=== PATIENT | female | born 1985 | race Hispanic/Latino ===

== ENCOUNTER 2018-10-21 11:16 | Inpatient (IN) | payer BC ==
[2018-10-21] MEDS ORDERED: Magnesium Sulfate 2 gm/50 ml 2 GM/50 ML BAG IVPB ONE (11:30)
[2018-10-21] MEDS: Lactated Ringer's 1,000 ML IV SCH ×2 (11:30→23:06)
[2018-10-21] MEDS ORDERED: Magnesium Sulfate 4 gm/100 ml 4 GM/100 ML BAG IV ONE (11:41)
[2018-10-21] MEDS ORDERED: Magnesium Sul 40GM/1L SW 40 GM/1,000 ML ML IV ONE (11:41)
[2018-10-21] MEDS ORDERED: Labetalol 5mg/ml (4ml) IVP STA ×2 (12:05→12:07)
[2018-10-21 13:12] LABS: BASO % 0.3 % (0.0-2.0); EOS % 0.2 % (0.0-4.0); HEMOGLOBIN 12.9 g/dL (12.0-16.0); LYMPH % 23.6 % (20.0-40.0); MEAN CELL VOLUME 95.1 fl (81.0-99.0); MEAN CORPUSCULAR HEMOGLOBIN 31.7 pg (27.0-31.0); MEAN CORPUSCULAR HGB CONC 33.4 g/dL (33.0-37.0); MEAN PLATELET VOLUME 11.2 fl (7.2-11.7); MONO # 0.5 K/uL (0.0-0.8); MONO % 5.9 % (0.0-10.0); NRBC % 0.2 % (0.0-0.0); RBC 4.08 Mil/uL (3.80-5.20); RED CELL DISTRIBUTION WIDTH 13.4 % (11.5-14.5); WHITE BLOOD COUNT 8.6 K/uL (4.8-10.8)
[2018-10-21] MEDS ORDERED: Labetalol 5 mg/ml Inj 20ML IVP STA (13:20)
[2018-10-21 14:28] LABS: ALB/GLOB RATIO 0.9 (1.0-2.1); ALBUMIN 2.8 g/dL (3.5-5.0); ALT/SGPT 24 U/L (9-52); AST/SGOT 30 U/L (14-36); BLOOD UREA NITROGEN 17 mg/dl (7-17); GFR NON-AFRICAN AMERICAN > 60
[2018-10-21] MEDS ORDERED: OXYTOCIN/0.9 % NS 20 UNIT/1,000 ML BAG IV ONE (17:26)
[2018-10-21] MEDS ORDERED: Oxytocin 30 UNIT 30 UNITS/500 ML BAG IV ONE (17:28)
[2018-10-21] MEDS ORDERED: ceFAZolin 2 GM in Sodium Chloride 0.9% 100 ML IVPB ONE (17:28)
[2018-10-21] MEDS ORDERED: Lactated Ringer's 1,000 ML IV ONE (17:45)
[2018-10-21] MEDS ORDERED: Morphine 1 mg/ml preservative-free Inj(Duramorph) ONE (17:54)
[2018-10-21] MEDS ORDERED: Naloxone 0.4 mg/ml Inj (Adult) IVP PRN (17:55)
[2018-10-21] MEDS ORDERED: DiphenhydrAMINE 50 mg/ml Inj IVP PRN (17:55)
[2018-10-21] MEDS ORDERED: OXYTOCIN/0.9 % NS 20 UNIT/1,000 ML BAG IV SCH (18:00)
[2018-10-21] MEDS ORDERED: ePHEDrine 50 mg/ml Inj ONE (18:14)
[2018-10-21] MEDS ORDERED: Oxycodone/Acetaminophen 5/325 mg Tab PO PRN ×2 (19:22)
--- NOTE | 2018-10-21 19:32 | OBPN ---
Datetime: 10/21/2018 12:12 FHR - Baseline A Provider: 150 Gestation - Est Wks by US: 36.6 Presentation-Admit: Vertex IP Progress Note Comment: Patient presented to labor and delivery with elevated blood pressures mary jane ent was given labetalol IV and despite aggressive management of her hypertension and her pressures re main elevated. Internal medicine consultation was obtained recommendation for delivery was made . Plan of care was discussed with patient and partner we discussed risks benefits alternatives to jelani neel after thorough discussion patient and partner agreed to plan of care. Vital Signs Provider: Reviewed Vital Signs Provider Details: Several severe range BPs FHR Category Provider Fetus A: Category I NICHD Variability Prov Fetus A: Moderate 6-25bpm NICHD Decel Fetus A IP Provider: None
--- NOTE | 2018-10-21 19:32 | OBDS ---
DELIVERY PERSONNEL Delivery Doctor: Maurizio Burger MD Scrub Nurse: Joann Estrada OBT Grain Elevator Agent: Jennifer Hunter RN Anesthesiologist: Yessica Mercedes MD Resident: Ralph Gu MATERNAL INFORMATION Delivery Anesthesia: Spinal Medications in Delivery: ancef 2g, pitocin 30 units/500ml, pitocin 20units/1000ml Estimated Blood Loss (ml): 800 Placenta Cultured: Yes Maternal Complications: Other Other Maternal Complications: severe hypertension Provider Comments: See operative report LABOR SUMMARY EDC: 11/14/2018 00:00 No. Babies in Womb: 1 Attempted: No Labor Anesthesia: Intrathecal LABOR INFORMATION Reason for Induction: Chronic Hypertension Oxytocin: N/A Group B Beta Strep: Done, Result Unknown Antibiotics # of Doses: 0 Antibiotics Time of Last Dose: n/a Steroids Given: None Reason Steroids Not Administered: Not Applicable MEMBRANES Membranes Rupture Method: Artificial Rupture of Membranes: 10/21/2018 18:33 Length of Rupture (hrs): 0.00 Amniotic Fluid Color: Light Meconium Amniotic Fluid Amount: Moderate Amniotic Fluid Odor: None STAGES OF LABOR Stage 3 hrs: 0 Stage 3 min: 1 CSECTION DELIVERY Primary Indication: Other Other Primary Indication: Sever Hypertension CSection Urgency: Elective CSection Incidence: Primary Labor: No Labor Elective: Elective CSection Incision: Lower Uterine Transverse BABY A INFORMATION Delivery Date/Time: 10/21/2018 18:33 Method of Delivery: Born in Route : No : N/A Forceps: N/A Vacuum Extraction: N/A Shoulder Dystocia : No SHOULDER DYSTOCIA BABY A Infant Delivery Date/Time: 10/21/2018 18:33 PRESENTATION/POSITION BABY A Presentation: Cephalic Cephalic Presentation: Vertex Breech Presentation: N/A PLACENTA INFORMATION BABY A Placenta Delivery Time : 10/21/2018 18:34 Placenta Method of Delivery: Spontaneous Placenta Status: Delivered SCORES BABY A Heart Rate 1 min: >100 bpm Resp Effort 1 min: Good Cry Reflex Irritability 1 min: Cough or Sneeze or Pulls Away Muscle Tone 1 min: Active Motion Color 1 min: Body [place], Extremities Blue Resuscitation Effort 1 min: N/A SCORE 1 MIN: 9 Heart Rate 5 min: >100 bpm Resp Effort 5 min: Good Cry Reflex Irritability 5 min: Cough or Sneeze or Pulls Away Muscle Tone 5 min: Active Motion Color 5 min: Body [place], Extremities Blue Resuscitation Effort 5 min: N/A SCORE 5 MIN: 9 INFORMATION BABY A Gestational Age at Delivery: 36.3 Gestational Status: Term Infant Outcome : Liveborn Condition : Stable Sex: Female IDENTIFICATION/MEDS BABY A ID Band Number: [id number] ID Band Location: Left Leg; Left Arm WEIGHT/LENGTH BABY A Infant Birthweight (gms): 2870 Weight (lb): 6 Infant Weight (oz): 5 CORD INFORMATION BABY A No. Cord Vessels: 3 Nuchal Cord : N/A Cord Blood Taken: Yes Suction: Mouth
[2018-10-21] MEDS: Simethicone 80 mg Chewtab PO SCH (22:00)
[2018-10-22] MEDS: Simethicone 80 mg Chewtab PO SCH ×4 (04:08→22:42)
[2018-10-22 06:21] LABS: MEAN CELL VOLUME 94.5 fl (81.0-99.0); MEAN CORPUSCULAR HEMOGLOBIN 31.4 pg (27.0-31.0); MEAN CORPUSCULAR HGB CONC 33.2 g/dL (33.0-37.0); RBC 3.52 Mil/uL (3.80-5.20); RED CELL DISTRIBUTION WIDTH 13.6 % (11.5-14.5); WHITE BLOOD COUNT 14.3 K/uL (4.8-10.8)
[2018-10-22] MEDS ORDERED: Multivitamin With Minerals Tab PO SCH ×2 (09:00)
[2018-10-22] MEDS ORDERED: Lactated Ringer's 1,000 ML IV SCH ×2 (09:30→13:25)
[2018-10-22] MEDS ORDERED: Magnesium Sul 40GM/1L SW 40 GM/1,000 ML ML IV ONE (09:30)
[2018-10-22 10:17] LABS: ALB/GLOB RATIO 0.9 (1.0-2.1); ALBUMIN 2.6 g/dL (3.5-5.0); ALT/SGPT 22 U/L (9-52); AST/SGOT 41 U/L (14-36); BLOOD UREA NITROGEN 16 mg/dl (7-17); GFR NON-AFRICAN AMERICAN > 60
--- NOTE | 2018-10-22 10:23 | OBPPN ---
Datetime: 10/22/2018 10:16 PP Pain Prov: Within normal limits PP Nausea Prov: Denies PP Flatus Prov: Yes PP Breasts Prov: Normal PP Heart Prov: Normal PP Lungs Prov: Normal PP Abdomen/Uterus Prov: Normal PP Lochia Prov: Normal PP Vulva/Perineum Prov: Normal PP CVA Tenderness Prov: Normal PP Extremities Prov: Normal PP Comments Phys Exam Prov: Fundus firm under umbilicus Incision clean/dry/intact PP Progress Note Prov: Patient evaluated, having some dizziness, resolved after eating. No CP, no SO B, noN/V, tolerating PO diet, ambulating minimal, Crain removed this morning with >1000mL clear urine , mild lochia, abdominal pain tolerable witih meds chest: Clear to auscultation B/L Extremities: B/L lower reflexes +1 A/P 1. patient stable this AM. BP ranges 130s-150s/80s-100s. If consistantly over 150/100, will consid er starting PO Labetalol. Pt otherwise denies new signs/symptoms of Pre-eclampsia. Mg level=6.3, Mg d ropped to 1gm/hr. Will continue strict I's/O's - if pt unable to void will re-insert crain. CBC/CMP pending 2. continue percocet/motrin prn pain 3. Encourage ambulation/ 4. MgSO4 to stop this evening Vital Signs Provider PP: Reviewed; Within Normal Limits
--- NOTE | 2018-10-22 16:26 | OBPPN ---
Datetime: 10/22/2018 16:22 PP Pain Prov: Within normal limits PP Nausea Prov: Denies PP Flatus Prov: Yes PP Breasts Prov: Normal PP Heart Prov: Normal PP Lungs Prov: Normal PP Abdomen/Uterus Prov: Normal PP Lochia Prov: Normal PP Vulva/Perineum Prov: Normal PP CVA Tenderness Prov: Normal PP Extremities Prov: Normal PP Impression Other Prov: elevated BPs PP Progress Note Prov: Patient evaluated, no CP, no SOB, no N/V, tolerating PO diet, ambulating/void ing well, mild lochia, abdominal pain tolerable with meds, BP = 140-160/80-100. Patient denies scleto matas, no RUQ pain. Voiding well, Lungs CTA. A/P 1. Patient has consistantly elevated BPs. Will start Labetalol 200mg PO BID. Patient has no new si gns/symptoms of pre-eclampsia, labs otherwise nml. Will stop MgSO4 at 6pm 2. continue all other management IP PP Procedures Comments: start Labetalol Vital Signs Provider PP: Reviewed; Within Normal Limits
[2018-10-22] MEDS ORDERED: Oxycodone/Acetaminophen 5/325 mg Tab PO PRN (23:19)
[2018-10-23] MEDS: Simethicone 80 mg Chewtab PO SCH ×5 (04:55→22:13)
[2018-10-23] MEDS: Oxycodone/Acetaminophen 5/325 mg Tab PO PRN (06:28)
--- NOTE | 2018-10-23 07:24 | OBPPN ---
Datetime: 10/23/2018 07:17 PP Pain Prov: Within normal limits PP Nausea Prov: Denies PP Flatus Prov: Yes PP BM Prov: No PP Abdomen/Uterus Prov: Normal PP Lochia Prov: Normal PP Extremities Prov: Normal PP C/S Incision Prov: Normal PP Progress Prov: Normal PP Comments Phys Exam Prov: Incision: intact PP Impression Prov: Normal progression PP Plan Prov: Continue present management PP Progress Note Prov: POD 2 s/p primary c/s w/ severe pre-eclampsia, s/p IV magnesium, breast and b ottle feeding, now ordered for labetolol 200 BID Will follow BP's Continue current management Vital Signs Provider PP: Reviewed
--- NOTE | 2018-10-23 08:34 | OP ---
PROCEDURE DATE: 10/21/18 PREOPERATIVE DIAGNOSES: Intrauterine at 36 weeks and 6 days, severe preeclampsia. POSTOPERATIVE DIAGNOSES: Intrauterine at 36 weeks and 6 days, severe preeclampsia. OPERATION PERFORMED: Primary low-flap transverse section by Pfannenstiel skin incision. SURGEON: Jeffrey Burger MD INSPECTOR FUEL HOSE: ESTIMATED BLOOD LOSS: 800 mL. URINE OUTPUT: Bonds catheter put out approximately 150 mL of clear urine. INTRAVENOUS FLUID INTAKE: The patient received 2900 mL of D5 LR intraoperatively. ANESTHESIA: Spinal. ANESTHESIA ADMINISTERED BY: Dr. Mercedes COMMENTS: The patient presented to Labor and Delivery with elevated blood pressure of 160/100. The patient received multiple courses of labetalol and despite aggressive management of her hypertension, the patient continued to spike temperature and elevated pressures. [facility] consultation was obtained. Decision for delivery via was made. DESCRIPTION OF PROCEDURE: After informed consent was obtained, the patient was taken to the operating room where she was given spinal anesthesia. She was then prepped and draped in a normal sterile fashion with a leftward tilt. A Pfannenstiel skin incision was then made with a scalpel and carried down to the underlying layer of fascia. The fascia was nicked in the midline. The fascial incision was then extended laterally with a curved Valle scissors. The superior aspect of the fascial incision was then grasped with Jacqueline clamps, elevated up, and the rectus muscles were dissected off using both sharp and blunt dissection. Attention was then turned to the inferior aspect of the fascial incision, which in a similar fashion, was grasped with Jacqueline clamps, elevated up, and the rectus muscles were dissected off using both sharp and blunt dissections. The rectus muscles were then in the midline. The peritoneum was identified and entered sharply with the Metzenbaum scissors. The peritoneal incision was then extended superiorly and inferiorly until good visualization of the bladder. A bladder blade was then inserted. The vesicouterine peritoneum was identified and entered sharply with the Metzenbaum scissors. The incision was then extended laterally. A bladder flap was created digitally. The bladder blade was then re-adjusted. A low-transverse incision was made with the scalpel. The incision was then extended laterally. The infant's head was then delivered atraumatically. The nose and mouth were suctioned with DeLee suction trap. The cord was clamped and cut. The infant was handed off to awaiting pediatricians. Cord blood was obtained and sent to Lab. The placenta was then removed manually. The uterus was exteriorized and cleared of all clots and debris. The uterine incision was repaired with 0 Vicryl in a running locked fashion. The second layer of the same suture was used to obtain excellent hemostasis. The uterus was then returned to the abdomen. The abdomen was then copiously irrigated. The irrigant was removed with the suction device. The gutters were then cleared of all clots and debris. It was noted to be hemostatic. The peritoneum was then closed with a 2-0 Vicryl in a running fashion. The muscles were reapproximate with 0 Vicryl in an interrupted fashion. The skin was closed with a 4-0 on a Choco needle. All sponge, lap, needle and instrument counts were correct x2. The patient was taken to the recovery room in awake and stable condition. Jeffrey Burger MD
[2018-10-23] MEDS: Multivitamin With Minerals Tab PO SCH (08:52)
[2018-10-23] MEDS ORDERED: Multivitamin With Minerals Tab PO SCH (09:00)
[2018-10-23 11:33] LABS: CREATININE, RANDOM URINE 161.8 mg/dL
[2018-10-24] MEDS: Simethicone 80 mg Chewtab PO SCH ×3 (05:49→16:06)
[2018-10-24] MEDS: Multivitamin With Minerals Tab PO SCH (08:12)
--- NOTE | 2018-10-24 10:44 | OBPPN ---
Datetime: 10/24/2018 10:36 PP Pain Prov: Within normal limits PP Nausea Prov: Denies PP Flatus Prov: Yes PP Breasts Prov: Normal PP Heart Prov: Normal PP Lungs Prov: Normal PP Abdomen/Uterus Prov: Normal PP Lochia Prov: Normal PP Vulva/Perineum Prov: Normal PP CVA Tenderness Prov: Normal PP Extremities Prov: Normal PP Comments Phys Exam Prov: Abd: Soft, NT, BS- present. UT- Firm Incision: Clean and dry PP Impression Prov: Normal progression PP Impression Other Prov: Elevated Blood pressures. PP Progress Note Prov: S/P Delivery S/P Magnesium Sulfate for seizure prophylaxis Elevated Blood pressures on Labetalol. Plan: Labetalol was increased from this am from 300mg Q 8 hours to 400mg Q 8 hours. Will let patient stay on for an additional day for BP control. Will Monitor BP.
[2018-10-24] MEDS: Oxycodone/Acetaminophen 5/325 mg Tab PO PRN (12:09)
[2018-10-25] MEDS: Simethicone 80 mg Chewtab PO SCH ×5 (01:36→21:18)
[2018-10-25] MEDS: Multivitamin With Minerals Tab PO SCH (08:23)
--- NOTE | 2018-10-25 16:12 | CP.PCM.CON ---
<Elian Domingo - Last Filed: 10/25/18 16:10> History of Present Illness - History of Present Illness History of Present Illness: Pt is a 33 yo f s/p c-sec day 4 with hx of Preeclampsia. Inpatient consulted due to uncontrolled blood pressure. Pt was seen by inpatient team. Pt denies any Dizziness, headache, change in vision change in hearing, tremors, confusion, chest pain, sob, dyspnea, she does state she have abd pain due to surgery but its improving. She is able to void and pass gas. She have pedal edema, but improving Review of Systems - Review of Systems Systems not reviewed;Unavailable: Acuity of Condition - Constitutional Constitutional: As Per HPI - EENT Eyes: As Per HPI. absent: Exophthalmos, Irritation, Photophobia Ears: As Per HPI Nose/Mouth/Throat: As Per HPI - Breasts Breasts: As Per HPI - Cardiovascular Cardiovascular: Pedal Edema. absent: Chest Pain, Chest Pain at Rest, Chest Pain with Activity, Claudication, Dyspnea, Irregular Heart Rhythm, Rapid Heart Rate, Slow Heart Rate, Syncope - Respiratory Respiratory: absent: Cough, Dyspnea, Pain on Inspiration - Gastrointestinal Gastrointestinal: As Per HPI - Genitourinary Genitourinary: As Per HPI - Reproductive: Female Reproductive:Female: As Per HPI - Musculoskeletal Musculoskeletal: As Per HPI. absent: Stiffness - Neurological Neurological: absent: Headaches, Syncope, Tingling, Tremor, Vertigo, Weakness - Psychiatric Psychiatric: absent: Confusion, Depression, Difficulty Concentrating, Mood Swings Past Patient History - Past Social History Smoking Status: Never Smoked Meds Allergies/Adverse Reactions: Allergies Allergy/AdvReac Type Severity Reaction Status Date / Time omeprazole AdvReac PAIN Verified 10/21/18 11:40 - Medications Medications: Current Medications Acetaminophen (Tylenol 325mg Tab) 325 mg PO Q6 PRN PRN Reason: Pain, Mild (1-3) Docusate Sodium (Colace) 100 mg PO BID [facility] Last Admin: 10/25/18 08:23 Dose: 100 mg Hydrocortisone (Cortizone 1% Cream) 1 applic TOP BID [facility] Last Admin: 10/25/18 08:24 Dose: 1 % Metoprolol Tartrate (Lopressor) 25 mg PO Q12 [facility] Multivitamins/Minerals (Therapeutic-M Tab) 1 tab PO DAILY [facility] Last Admin: 10/25/18 08:23 Dose: 1 tab Simethicone (Mylicon Chew Tab) 80 mg PO Q6 [facility] Last Admin: 10/25/18 10:45 Dose: Not Given Physical Exam - Constitutional Appears: Well, Non-toxic, No Acute Distress - Head Exam Head Exam: ATRAUMATIC, NORMAL INSPECTION, NORMOCEPHALIC - Eye Exam Eye Exam: EOMI, Normal appearance, PERRL Pupil Exam: NORMAL ACCOMODATION, PERRL - ENT Exam ENT Exam: Mucous Membranes Moist, Normal Exam - Neck Exam Neck exam: Positive for: Normal Inspection - Respiratory Exam Respiratory Exam: Clear to Auscultation Bilateral, NORMAL BREATHING PATTERN - Cardiovascular Exam Cardiovascular Exam: REGULAR RHYTHM, +S1, +S2 - GI/Abdominal Exam GI & Abdominal Exam: Normal Bowel Sounds, Soft. absent: Distended, Guarding - Extremities Exam Extremities exam: Positive for: pedal edema. Negative for: pedal pulses present Additional comments: Pedal edema +2 - Back Exam Back exam: NORMAL INSPECTION. absent: CVA tenderness (L), CVA tenderness (R) - Neurological Exam Neurological exam: Alert, Oriented x3 - Psychiatric Exam Psychiatric exam: Normal Affect, Normal Mood - Skin Skin Exam: Dry, Intact, Normal Color, Warm Results - Vital Signs Recent Vital Signs: Last Vital Signs Temp 98 F 10/22/18 16:19 Pulse 72 10/22/18 16:19 Resp 18 10/22/18 16:19 BP Pulse Ox - Labs Result Diagrams: 10/22/18 05:15 10/22/18 09:45 Assessment & Plan - Assessment and Plan (Free Text) Assessment: Pt is a 33 yo f s/p c-sec day 4 with hx of Preeclampsia. Inpatient consulted due to uncontrolled blood pressure. Last Bp was 170/92 Plan Will stop labetalol Stop Ibuprofen as medication will increase bp Give Lopressor 25mg Iv Stat Continue Lopressor 25mg PO Q12h, stop medication if bp is equal or less than systolic 110, or HR less than 60 WIll start on Tylenol for pain Patient can be discharged if BP is <145/85 sign off patient, Consul appreciated. If needed re-consult again. <Perry Sanchez D - Last Filed: 10/25/18 18:17> Meds - Medications Medications: Current Medications Acetaminophen (Tylenol 325mg Tab) 325 mg PO Q6 PRN PRN Reason: Pain, Mild (1-3) Docusate Sodium (Colace) 100 mg PO BID [facility] Last Admin: 10/25/18 16:24 Dose: 100 mg Hydrocortisone (Cortizone 1% Cream) 1 applic TOP BID [facility] Last Admin: 10/25/18 16:26 Dose: 1 % Metoprolol Tartrate (Lopressor) 25 mg PO Q12 [facility] Multivitamins/Minerals (Therapeutic-M Tab) 1 tab PO DAILY [facility] Last Admin: 10/25/18 08:23 Dose: 1 tab Simethicone (Mylicon Chew Tab) 80 mg PO Q6 [facility] Last Admin: 10/25/18 16:24 Dose: 80 mg Results - Vital Signs Recent Vital Signs: Last Vital Signs Temp 98 F 10/22/18 16:19 Pulse 66 10/25/18 16:24 Resp 18 10/22/18 16:19 BP 170/86 H 10/25/18 16:24 Pulse Ox - Labs Result Diagrams: 10/25/18 16:49 10/25/18 16:49 Labs: Laboratory Results - last 24 hr 10/25/18 10/25/18 16:49 16:49 WBC 7.3 RBC 3.29 L Hgb 10.4 L Hct 31.6 L MCV 95.8 MCH 31.5 H MCHC 32.9 L RDW 14.2 Plt Count 181 MPV 8.8 Neut % (Auto) 70.8 Lymph % (Auto) 23.1 [place] % (Auto) 4.6 Eos % (Auto) 1.5 Baso % (Auto) 0.0 Neut # (Auto) 5.2 Lymph # (Auto) 1.7 [place] # (Auto) 0.3 Eos # (Auto) 0.1 Baso # (Auto) 0.0 Sodium 136 Potassium 4.2 Chloride 105 Carbon Dioxide 24 Anion Gap 11 BUN 18 H Creatinine 0.9 Est GFR ( Amer) > 60 Est GFR (Non-Af Amer) > 60 Random Glucose 104 Calcium 8.9 Attending/Attestation - Attestation I have personally seen and examined this patient.: Yes I have fully participated in the care of the patient.: Yes I have reviewed all pertinent clinical information: Yes Notes (Text): 10/25/18 18:16 Patient seen and examined with resident. Agreed with assessment and plan of management.
--- NOTE | 2018-10-25 16:25 | OBPPN ---
Datetime: 10/25/2018 16:16 PP Pain Prov: Within normal limits PP Nausea Prov: Denies PP Flatus Prov: Yes PP Breasts Prov: Normal PP Heart Prov: Normal PP Lungs Prov: Normal PP Abdomen/Uterus Prov: Normal PP Lochia Prov: Normal PP Vulva/Perineum Prov: Normal PP CVA Tenderness Prov: Normal PP Extremities Prov: Normal PP Comments Phys Exam Prov: Abd: Soft, NT, BS- present UT- Firm, NT Incision clean and dry. BP ranges 140-160s/80 - 90s PP Impression Prov: Normal progression PP Plan Prov: Continue present management PP Impression Other Prov: Elevated BPs PP Progress Note Prov: Patient reports that she is doing well. She denies any current complaints. Denies headache, dizziness and blurry vision or epigastric pain. BP ranges 140-160s/80-90s. Assessment: S/P Delivery, POD #4 Elevated BPs on Labetatlol. No improvement in BP control despite antihypertensive. Plan: Internal medicine consult for blood pressure control. Plan discussed with patient. Questions from patient answered. Will continue to monitor vital signs and blood pressure.
[2018-10-25 17:03] LABS: EOS # 0.1 K/uL (0.0-0.7); EOS % 1.5 % (0.0-4.0); HEMOGLOBIN 10.4 g/dL (12.0-16.0); LYMPH # 1.7 K/uL (1.0-4.3); LYMPH % 23.1 % (20.0-40.0); MEAN CELL VOLUME 95.8 fl (81.0-99.0); MEAN CORPUSCULAR HEMOGLOBIN 31.5 pg (27.0-31.0); MEAN CORPUSCULAR HGB CONC 32.9 g/dL (33.0-37.0); MEAN PLATELET VOLUME 8.8 fl (7.2-11.7); MONO # 0.3 K/uL (0.0-0.8); MONO % 4.6 % (0.0-10.0); NEUT # 5.2 K/uL (1.8-7.0); NEUT % 70.8 % (50.0-75.0); RBC 3.29 Mil/uL (3.80-5.20); RED CELL DISTRIBUTION WIDTH 14.2 % (11.5-14.5); WHITE BLOOD COUNT 7.3 K/uL (4.8-10.8)
[2018-10-25 17:15] LABS: BLOOD UREA NITROGEN 18 mg/dl (7-17); CALCIUM 8.9 mg/dL (8.4-10.2); GFR NON-AFRICAN AMERICAN > 60
[2018-10-26] MEDS: Simethicone 80 mg Chewtab PO SCH (03:26)
[2018-10-26] MEDS: Multivitamin With Minerals Tab PO SCH (08:15)
[2018-10-26] MEDS ORDERED: NIFEdipine 60 mg ER Tab PO SCH (09:30)
--- NOTE | 2018-10-26 09:43 | CARD ---
APPROVED REPORT Date of service: 10/26/2018 EKG Measurement Heart [id number] MD [id number] <Conclusion> Normal sinus rhythm with sinus arrhythmia Normal ECG
--- NOTE | 2018-10-26 09:50 | CP.PCM.CON ---
History of Present Illness - History of Present Illness History of Present Illness: this 33-year-old extremely active female who exercises vigorously and regularly underwent section urgently at 33 weeks of her because of markedly elevated blood pressure. Her blood pressure re adings still 2 weeks back were consistently normal. Her urine also showed evidence of proteinuria. The patient denies having had elevated blood pressure readings earlier. She did not have any medical problems. She does admit to eating salty chips. there is no family history of hypertension or vascular disease. There is no history of diabetes of smoking. There is no history of renal disease in the past. The patient was never overweight. physical examination shows a young pleasant female well built well-nourished.. Afebrile with a pulse rate of 66 bpm regular and a blood pressure of 176/100 mmHg. Her jugular venous pressure was not elevated there was no edema over her lower extremities. The pedal pulses were well felt. There were no carotid bruits. Thyroid was not enlarged. The apex was in the fifth space and first and second heart sounds were normal. There was no murmur or gallop. There were no rales. Her electro-cardial gram showed sinus rhythm with normal EKG pattern. There was no evidence of left ventricular hypertrophy. Review off her labs showed normal renal function. There was mild hypoalbuminemia and her urine did show significant amount of protein immediately following her section. Impression: related hypertension.. A normal cardiogram strongly suggests that she has not had elevated blood pressure readings for a long time. The patient plans to breast-feed. I have started her on beta nyla and nifedipine. I have strongly urged her to stop eating salty food. Past Patient History - Past Social History Smoking Status: Never Smoked Meds Allergies/Adverse Reactions: Allergies Allergy/AdvReac Type Severity Reaction Status Date / Time omeprazole AdvReac PAIN Verified 10/21/18 11:40 - Medications Medications: Current Medications Acetaminophen (Tylenol 325mg Tab) 325 mg PO Q6 PRN PRN Reason: Pain, Mild (1-3) Docusate Sodium (Colace) 100 mg PO BID [facility] Last Admin: 10/26/18 08:15 Dose: 100 mg Hydrocortisone (Cortizone 1% Cream) 1 applic TOP BID [facility] Last Admin: 10/26/18 08:15 Dose: 1 applic Labetalol HCl (Trandate) 400 mg PO BID [facility] Multivitamins/Minerals (Therapeutic-M Tab) 1 tab PO DAILY [facility] Last Admin: 10/26/18 08:15 Dose: 1 tab Nifedipine (Procardia Xl) 60 mg PO DAILY [facility] Simethicone (Mylicon Chew Tab) 80 mg PO Q6 [facility] Last Admin: 10/26/18 03:26 Dose: Not Given Results - Vital Signs Recent Vital Signs: Last Vital Signs Temp 98 F 10/22/18 16:19 Pulse 78 10/26/18 07:28 Resp 18 10/22/18 16:19 BP 167/100 H 10/26/18 07:28 Pulse Ox - Labs Result Diagrams: 10/25/18 16:49 10/25/18 16:49 Labs: Laboratory Results - last 24 hr 10/25/18 10/25/18 16:49 16:49 WBC 7.3 RBC 3.29 L Hgb 10.4 L Hct 31.6 L MCV 95.8 MCH 31.5 H MCHC 32.9 L RDW 14.2 Plt Count 181 MPV 8.8 Neut % (Auto) 70.8 Lymph % (Auto) 23.1 [place] % (Auto) 4.6 Eos % (Auto) 1.5 Baso % (Auto) 0.0 Neut # (Auto) 5.2 Lymph # (Auto) 1.7 [place] # (Auto) 0.3 Eos # (Auto) 0.1 Baso # (Auto) 0.0 Sodium 136 Potassium 4.2 Chloride 105 Carbon Dioxide 24 Anion Gap 11 BUN 18 H Creatinine 0.9 Est GFR ( Amer) > 60 Est GFR (Non-Af Amer) > 60 Random Glucose 104 Calcium 8.9
--- NOTE | 2018-10-26 14:12 | OBPPN ---
Datetime: 10/26/2018 14:10 PP Pain Prov: Within normal limits PP Nausea Prov: Denies PP Flatus Prov: Yes PP Breasts Prov: Normal PP Heart Prov: Normal PP Lungs Prov: Normal PP Abdomen/Uterus Prov: Normal PP Lochia Prov: Normal PP Vulva/Perineum Prov: Normal PP CVA Tenderness Prov: Normal PP Extremities Prov: Normal PP Comments Phys Exam Prov: Incision clean/dry/intact PP Impression Prov: Normal progression PP Plan Prov: Continue present management; Discharge PP Progress Note Prov: Patient evaluated, denies CP, no SOB, no N/V, tolerating PO diet, ambulating/ voiding well, mild lochia, abdominal pain tolerable with meds, +flatus, no CHENEY, no scletomatas A/P 1. Patient's BP stable after Procardia 60mg XL was added. Pt has no new signs/symptoms. Pt for dis charge, discharge and follow up instructions reviewed IP PP Procedures: None Vital Signs Provider PP: Reviewed; Within Normal Limits
--- NOTE | 2018-10-26 14:14 | OBDCSUM ---
Datetime: 10/26/2018 14:11 Discharged to, Provider: Home Follow up at, Provider: OB Disch Instr Activity: Normal activity Disch Instr Diet: Regular Discharge Instructions, Provider: Routine instructions given Follow up in weeks, Provider: next week and in 6 wks Disch Referrals: None Contraception discussed, Prov: Yes Discharge Diagnosis Prov Other: severe pre-clampsia
[2018-10-26 20:21] VITALS: BP 144/84; PULSE 60; RESP 20; TEMP 97.4; O2SAT 100
== END 2018-10-26 15:30 | disposition home or self-care (01) | DRG 788 ==
LOC: H.EROB2 11:16 → H.L&D 11:47 → H.OB/GYN 10-22 20:15
PROVIDERS: ADMIT Obstetrics & Gynecology; ATTEND Obstetrics & Gynecology
PROC: 10D00Z1 Extraction of Products of Conception, Low, Open Approach (ICD-10-PCS; principal; 2018-10-21)
PROC: 4A1HXCZ Monitoring of Products of Conception, Cardiac Rate, External Approach (ICD-10-PCS; 2018-10-21)
DX: O11.4 Pre-existing hypertension with pre-eclampsia, complicating childbirth (principal); Z3A.36 36 weeks gestation of pregnancy; Z37.0 Single live birth